=== PATIENT | male | born 2000 | race Hispanic/Latino ===

== ENCOUNTER 2020-10-22 00:36 | Emergency (ER) | payer OTHER, SELFPAY ==
[~2020-10-22] VITALS: Ht 165.1 cm; Wt 93.0 kg
[2020-10-22 00:53] VITALS: BP 167/81
[2020-10-22] MEDS ORDERED: ACETAMINOPHEN 500 MG TABLET PO ONE (01:00)
== END 2020-10-22 02:49 | disposition home or self-care (01) ==
LOC: EDH 00:36
DX: U07.1 COVID-19 (principal); B97.89 Other viral agents as the cause of diseases classified elsewhere; J06.9 Acute upper respiratory infection, unspecified
CPT/HCPCS: 87426; 87804